=== PATIENT | male | born 1990 | race Asian ===

== ENCOUNTER 2018-09-28 13:05 | Inpatient (IN) | payer MEDICAID ==
[~2018-09-28] VITALS: Ht 177.8 cm; Wt 79.8 kg
[2018-09-28 15:39] VITALS: BP 128/77
[2018-09-28] MEDS ORDERED: DIPH25 PO (16:03)
[2018-09-28] MEDS ORDERED: CITA10TA68 PO (16:03)
[2018-09-28 17:06] VITALS: BP 130/84
[2018-09-28] MEDS ORDERED: IBUPROFEN 400 MG TABLET PO PRN (18:30)
[2018-09-28] MEDS ORDERED: GuaiFENesin/D-METHORPHAN [SUGAR-FREE] 200-20MG/10 ML SYRUP UDCUP PO PRN (18:30)
[2018-09-28] MEDS ORDERED: ACETAMINOPHEN 325 MG TABLET PO PRN (18:30)
[2018-09-28] MEDS ORDERED: ONDANSETRON HCL 4 MG TABLET PO PRN (18:30)
[2018-09-28] MEDS ORDERED: PETROLATUM,WHITE 28 GM JELLY TP PRN (18:30)
[2018-09-28] MEDS ORDERED: CloNIDine HCL 0.1 MG TABLET PO PRN (18:30)
[2018-09-28] MEDS ORDERED: MAG HYDROX/AL HYDROX/SIMETH ES 30 ML SUSPENSION UDCUP PO PRN (18:30)
[2018-09-28] MEDS ORDERED: DOCUSATE SODIUM 100 MG CAPSULE PO PRN (18:30)
[2018-09-28] MEDS ORDERED: MAGNESIUM HYDROXIDE SUSPENSION 30 ML UDCUP PO PRN (18:30)
[2018-09-28] MEDS ORDERED: LOPERAMIDE HCL 2 MG CAPSULE PO PRN (18:30)
[2018-09-28] MEDS ORDERED: ALBUTEROL SULFATE HFA 90 MCG/PUFF 8 GM INHALER IH PRN (18:30)
[2018-09-29 04:38] VITALS: BP 120/78
[2018-09-29 08:13] LABS: BASOPHILS % (AUTO) 2.1 % (0.0-2.0); EOSINOPHILS % (AUTO) 2.4 % (1.0-6.0); HEMATOCRIT 49.1 % (41-53); HEMOGLOBIN 16.1 g/dL (13.5-17.5); LYMPHOCYTES # (AUTO) 2.9 K/uL (1.0-4.8); LYMPHOCYTES % (AUTO) 43.3 % (22.0-44.0); MEAN CORPUSCULAR HEMOGLOBIN 26.1 pg (26.0-34.0); MEAN CORPUSCULAR HGB CONC 32.8 G/dL (31.0-37.0); MEAN CORPUSCULAR VOLUME 80 fL (80-100); MONOCYTES # (AUTO) 0.6 K/uL (0.1-1.0); MONOCYTES % (AUTO) 8.1 % (2.0-9.0); NEUTROPHILS % (AUTO) 44.1 % (40.0-70.0); PLATELET COUNT (AUTO) 290 K/uL (150-450); RED BLOOD CELL COUNT(AUTO) 6.17 MIL/uL (4.50-5.90); RED CELL DISTRIBUTION WIDTH 14.1 % (11.5-14.5)
[2018-09-29] MEDS: NICOTINE 14 MG/24 HOUR PATCH TD SCH (08:47)
[2018-09-29 08:49] LABS: ALANINE AMINOTRANSFERASE 40 U/L (12-78); ALBUMIN 4.2 g/dL (3.4-5.0); ALKALINE PHOSPHATASE 49 U/L (46-116); ANION GAP 10 mmol/L (8-16); ASPARTATE AMINOTRANSFERASE 22 U/L (15-37); BILIRUBIN,TOTAL 0.9 mg/dL (0.1-1.0); CALCIUM, TOTAL 9.4 mg/dL (8.8-10.5); CARBON DIOXIDE 27 mmol/L (22-29); CHLORIDE 106 mmol/L (98-107); CHOL/HDL RATIO 2.3 (4.2-7.3); CHOLESTEROL 152 mg/dL (131-200); CREATININE 1.09 mg/dL (0.60-1.30); FREE T4 (FREE THYROXINE) 1.22 ng/dL (0.76-1.46); GLOMERULAR FILTR. RATE CALC > 60 mL/min (>60); GLUCOSE,RANDOM 77 mg/dL (70-110); HDL CHOLESTEROL 65 mg/dL (40-60); LDL CHOL (CALC.) 67 mg/dL (0-130); POTASSIUM 4.2 mmol/L (3.5-5.1); SODIUM SERUM 143 mmol/L (136-145); THYROID STIMULATING HORMONE 0.77 uIU/mL (0.36-3.74); TOTAL PROTEIN, SERUM 7.3 g/dL (6.4-8.2); TRIGLYCERIDES 99 mg/dL (15-150); UREA NITROGEN, BLOOD 12 mg/dL (7-18)
[2018-09-29 08:58] VITALS: BP 123/84
[2018-09-29 09:05] LABS: PLATELET MORPHOLOGY COMMENT LARGE PLTS PRESENT
[2018-09-29] MEDS: ARIPiprazole 5 MG TABLET PO SCH (13:19)
[2018-09-29 16:19] VITALS: BP 108/73
[2018-09-29] MEDS ORDERED: MIRTAZAPINE 15 MG TABLET PO SCH (21:00)
[2018-09-30 02:35] VITALS: BP 110/68
[2018-09-30 08:27] VITALS: BP 123/71
[2018-09-30] MEDS: ARIPiprazole 5 MG TABLET PO SCH (09:35)
[2018-09-30] MEDS: NICOTINE 14 MG/24 HOUR PATCH TD SCH (09:39)
[2018-09-30] MEDS ORDERED: ZOLPIDEM TARTRATE 10 MG TABLET PO PRN (10:15)
[2018-09-30] MEDS ORDERED: LORazepam 2 MG TABLET PO PRN (10:15)
[2018-09-30] MEDS ORDERED: HALOPERIDOL 5 MG TABLET PO PRN (10:15)
[2018-09-30 16:28] VITALS: BP 101/60
[2018-09-30] MEDS: MIRTAZAPINE 30 MG TABLET PO SCH (20:55)
[2018-10-01 00:13] VITALS: BP 109/61
[2018-10-01 08:20] VITALS: BP 113/75
[2018-10-01] MEDS ORDERED: ARIPiprazole 10 MG TABLET PO SCH (09:00)
[2018-10-01] MEDS: NICOTINE 14 MG/24 HOUR PATCH TD SCH (09:00)
[2018-10-01 16:46] VITALS: BP 118/69
[2018-10-01] MEDS: MIRTAZAPINE 30 MG TABLET PO SCH (20:30)
[2018-10-02 06:38] VITALS: BP 124/74
[2018-10-02 08:25] VITALS: BP 122/73
[2018-10-02] MEDS ORDERED: ARIPiprazole 15 MG TABLET PO SCH (09:00)
[2018-10-02] MEDS: NICOTINE 14 MG/24 HOUR PATCH TD SCH (10:21)
[2018-10-02 16:41] VITALS: BP 113/90
[2018-10-02] MEDS: MIRTAZAPINE 30 MG TABLET PO SCH (20:34)
[2018-10-03 07:12] VITALS: BP 112/82
[2018-10-03] MEDS: NICOTINE 14 MG/24 HOUR PATCH TD SCH (09:21)
[2018-10-03] MEDS: ARIPiprazole 10 MG TABLET PO SCH (09:21)
[2018-10-03 09:36] VITALS: BP 119/77
[2018-10-03 16:29] VITALS: BP 116/54
[2018-10-03] MEDS: MIRTAZAPINE 30 MG TABLET PO SCH (20:26)
[2018-10-04 00:48] VITALS: BP 118/72
[2018-10-04] MEDS: NICOTINE 14 MG/24 HOUR PATCH TD SCH (08:46)
[2018-10-04] MEDS: ARIPiprazole 10 MG TABLET PO SCH (08:46)
[2018-10-04 09:18] VITALS: BP 116/90
[2018-10-04] MEDS ORDERED: MIRT15 PO (12:51)
[2018-10-04] MEDS ORDERED: ARIP10TA8 PO (12:51)
[2018-10-04] MEDS ORDERED: NICO-703 TD (12:58)
[2018-10-04 17:45] VITALS: BP 122/84
[2018-10-04] MEDS: MIRTAZAPINE 30 MG TABLET PO SCH (20:05)
== END 2018-10-04 20:15 | disposition home or self-care (01) | DRG 750 ==
LOC: B2S 16:06
PROVIDERS: ADMIT Psychiatry & Neurology Psychiatry; ATTEND Psychiatry & Neurology Psychiatry
DX: F25.0 Schizoaffective disorder, bipolar type (principal); R45.851 Suicidal ideations; F29 Unspecified psychosis not due to a substance or known physiological condition; R45.87 Impulsiveness; F10.10 Alcohol abuse, uncomplicated; F41.9 Anxiety disorder, unspecified; G44.209 Tension-type headache, unspecified, not intractable; Z91.19 Patient's noncompliance with other medical treatment and regimen
CPT/HCPCS: 83036; 84439; 84443; 87081

== ENCOUNTER 2018-10-25 20:58 | Emergency (ER) | payer MEDICAID ==
[~2018-10-25 20:58] MED LIST: ARIP10TA8 PO; MIRT15 PO; NICO-703 TD
== END 2018-10-25 21:27 | disposition left against medical advice (07) ==
LOC: EMS 20:58
DX: L08.9 Local infection of the skin and subcutaneous tissue, unspecified (principal); Z53.21 Procedure and treatment not carried out due to patient leaving prior to being seen by health care provider